=== PATIENT | female | born 1980 | race Caucasian/White ===

== ENCOUNTER 2018-01-02 07:46 | Emergency (ER) | payer MEDICAID, OTHER ==
[~2018-01-02] VITALS: Ht 160 cm; Wt 65.3 kg
[~2018-01-02 07:46] MED LIST: AMOX-999 PO; CHLO118S2 TP; LEVEMIR SUBQ; SACC250C1 PO; SLIDE SUBQ
[2018-01-02 07:58] VITALS: BP 160/86
--- NOTE | 2018-01-02 08:05 | NUR ---
PT AMBULATED TO BED 2
--- NOTE | 2018-01-02 08:13 | NUR ---
37 YO F BIB family w/ c/o pain 06/10 after a fall that occured 1 hour ago. Pt reports that she did not hit her head. Denies n/v at this time. Right leg/knee is swollen +2, non-pitting. Pt reports the pain begins at her right knee and radiates up her thigh and down to her foot. Sharp, like "electricity" shooting up her leg. A &O x 4. GCS 15. CMS intact. Pt denies numbness/tingling at this time. Pt unable to ambulate at this time due to injury, no weight-bearing. ER MD Salas notified of pt condition. Pt needs met at this time. Will continue to monitor.
[2018-01-02] MEDS ORDERED: KETOROLAC 60 MG/2 ML VIAL IM ONE (08:25)
[2018-01-02] MEDS ORDERED: HYDROcodone/APAP 5/325 MG 1 TAB TAB PO ONE (08:25)
--- NOTE | 2018-01-02 08:34 | NUR ---
Pt taken to XRAY via wheel chair accompanied by 2 XRAY techs.
--- NOTE | 2018-01-02 09:00 | NUR ---
Pt back from XRAY via w/c accompanied by manufacturing technician.
[2018-01-02 10:34] VITALS: BP 142/71
--- NOTE | 2018-01-02 10:34 | NUR ---
Patient discharged with v/s stable. Written and verbal after care instructions given and explained. Patient alert, oriented and verbalized understanding of instructions. All questions addressed prior to discharge. ID band removed. Patient advised to follow up with PMD. Rx of KETOROLAC, TRAMADOL given. Patient educated on indication of medication including possible reaction and side effects. Opportunity to ask questions provided and answered. PT LEFT VIA CRUTCHES, SENT OUT VIA W/C, PT STILL C/O LIGHTHEADNESS SECONDARY TO PAIN MED. CRUTCHES TEACHING DONE.
== END 2018-01-02 10:34 | disposition home or self-care (01) ==
LOC: MED 07:46
DX: S83.421A Sprain of lateral collateral ligament of right knee, initial encounter (principal); E05.90 Thyrotoxicosis, unspecified without thyrotoxic crisis or storm; E11.9 Type 2 diabetes mellitus without complications; W01.0XXA Fall on same level from slipping, tripping and stumbling without subsequent striking against object, initial encounter; Y93.89 Activity, other specified; Y92.89 Other specified places as the place of occurrence of the external cause; Y99.8 Other external cause status
CPT/HCPCS: 29505; 73562; 82948; 96372; 99285; J1885

== ENCOUNTER 2018-01-08 00:23 | Emergency (ER) | payer OTHER ==
[~2018-01-08] VITALS: Ht 160 cm; Wt 68.0 kg
[2018-01-08 00:42] VITALS: BP 154/87
--- NOTE | 2018-01-08 01:55 | NUR ---
PT TO CT
--- NOTE | 2018-01-08 01:55 | NUR ---
Pt presents to ED with Right knee pain x1 week. Pt states no numbness or tingling. VSS. ER MD aware. Continue to monitor.
[2018-01-08] MEDS ORDERED: HYDROcodone/APAP 5/325 MG 1 TAB TAB PO ONE (02:50)
[2018-01-08 04:18] VITALS: BP 154/87
--- NOTE | 2018-01-08 04:18 | NUR ---
Patient discharged with v/s stable. Written and verbal after care instructions given and explained. Patient alert, oriented and verbalized understanding of instructions. Ambulatory with steady gait. All questions addressed prior to discharge. ID band removed. Patient advised to follow up with PMD. Rx of norco and ibuprofen given. Patient educated on indication of medication including possible reaction and side effects. Opportunity to ask questions provided and answered.
== END 2018-01-08 04:18 | disposition home or self-care (01) ==
LOC: MED 04:05
DX: S82.141A Displaced bicondylar fracture of right tibia, initial encounter for closed fracture (principal); E11.9 Type 2 diabetes mellitus without complications; E05.90 Thyrotoxicosis, unspecified without thyrotoxic crisis or storm; X58.XXXA Exposure to other specified factors, initial encounter; Y93.89 Activity, other specified; Y92.89 Other specified places as the place of occurrence of the external cause; Y99.8 Other external cause status
CPT/HCPCS: 29505; 73700; 81025; 99284

== ENCOUNTER 2018-12-03 15:04 | Emergency (ER) | payer OTHER ==
[~2018-12-03] VITALS: Ht 162.6 cm; Wt 73.0 kg
[2018-12-03 15:48] VITALS: BP 153/115
--- NOTE | 2018-12-03 17:10 | NUR ---
PT TO ER BED 7
--- NOTE | 2018-12-03 17:26 | NUR ---
THIS 38 YEAR FEMALE PT IS REFERRED BY HER PCP FOR BLE US TO RULE OUT DVT. PATIENT . PT STATES SHE HAS BEENNGETTING BLE EDEMA SINCE A WEEK W/O RELIEF. NOT TAKING ANY MEDICINES FOR EDEMA. PITTING EDEMA 1+ BLE. HAS EQUAL SENSATION ON BLE. MOVES ALL FINGERS AND EXTREMITIES FREELY. NOTED REDNESS ON BL FEET. DENIES N/V/D; SKIN IS PINK/WARM/DRY. AAOX4 WITH EVEN AND STEADY GAIT. PT DENIES ANY FEVER, CP, SOB, OR COUGH AT THIS TIME. PATIENT STATES SHE HAS BL LOWER EXTREMITIES PAIN BUT DOES NOT WANT PAIN MEDICINE AT THIS TIME. ELEVATED BP NOTED. AWARE. PATIENT POSITIONED FOR COMFORT; HOB ELEVATED; BEDRAILS UP X2; BED DOWN. ER MD MADE AWARE OF PT STATUS.
[2018-12-03 18:40] VITALS: BP 198/97
--- NOTE | 2018-12-03 18:40 | NUR ---
Patient discharged with v/s stable. Written and verbal after care instructions given and explained. Patient verbalized understanding. Ambulatory with steady gait. All questions addressed prior to discharge. Advised to follow up with PMD.
== END 2018-12-03 18:49 | disposition home or self-care (01) ==
LOC: MED 15:04
DX: R60.0 Localized edema (principal); M79.645 Pain in left finger(s); E11.319 Type 2 diabetes mellitus with unspecified diabetic retinopathy without macular edema; I10 Essential (primary) hypertension; Z79.2 Long term (current) use of antibiotics; Z79.4 Long term (current) use of insulin
CPT/HCPCS: 73140; 93970; 99284; Q0092

== ENCOUNTER 2019-07-20 17:18 | Emergency (ER) | payer OTHER ==
[~2019-07-20] VITALS: Ht 160 cm; Wt 72.6 kg
[2019-07-20 17:23] VITALS: BP 121/69
--- NOTE | 2019-07-20 17:32 | NUR ---
WAIT AT [facility],AAOX4
--- NOTE | 2019-07-20 17:44 | NUR ---
C/O NAUSEA & LEFT LOWER BACK PAIN X 3 DAYS. PAIN CONSTANT 9/10. DENIES VOMITING, FEVER, BM CHANGES. LBM TODAY NORMAL CONSISTENCY. DENIES UTI SYMPTOMS. LEFT LUMBAR REGION TENDER TO PALPATION. NO TENDERNESS TO SPINE. MED HX:DM
[2019-07-20] MEDS ORDERED: KETOROLAC 30 MG/ML VIAL IM ONE (18:25)
--- NOTE | 2019-07-20 18:55 | NUR ---
Patient discharged with v/s stable. Written and verbal after care instructions given and explained. Patient alert, oriented and verbalized understanding of instructions. Ambulatory with steady gait. All questions addressed prior to discharge. ID band removed. Patient advised to follow up with PMD. Rx of MOTRIN AND ACETAMINOPHEN given. Patient educated on indication of medication including possible reaction and side effects. Opportunity to ask questions provided and answered.
[2019-07-20 19:00] VITALS: BP 128/81
== END 2019-07-20 18:55 | disposition home or self-care (01) ==
LOC: MED 17:18
DX: M54.5 Low back pain (principal); R31.9 Hematuria, unspecified; E11.319 Type 2 diabetes mellitus with unspecified diabetic retinopathy without macular edema; I10 Essential (primary) hypertension; E05.90 Thyrotoxicosis, unspecified without thyrotoxic crisis or storm; Z90.49 Acquired absence of other specified parts of digestive tract; Z98.890 Other specified postprocedural states; Z79.4 Long term (current) use of insulin; Z79.899 Other long term (current) drug therapy
CPT/HCPCS: 81002; 81025; 96372; 99283; J1885; 82948

== ENCOUNTER 2019-07-21 17:54 | Emergency (ER) | payer OTHER ==
[~2019-07-21] VITALS: Ht 160 cm; Wt 72.6 kg
[2019-07-21 18:49] VITALS: BP 173/89
--- NOTE | 2019-07-21 19:08 | NUR ---
PT AMBULATES TO LOBBY. DR. TINSLEY MADE AWARE OF PT'S BP.
--- NOTE | 2019-07-21 20:09 | NUR ---
PT AMBULATED TO ER BED 1
--- NOTE | 2019-07-21 20:18 | NUR ---
38 Y/O F PRESENTS TO ED WITH C/O LT FLANK PAIN X 4 DAYS, WORSENING TODAY. AAOX4. 07/10 SHARP AND CONTINOUS PAIN. PAIN RADIATES TO LLQ ABDOMEN. LT FLANK PAIN TENDERNESS. PT DENIES DYSURIA AND HEMATURIA. +NAUSEA. FAMILY AT BEDSIDE. WILL CONTINUE TO MONTIOR.
--- NOTE | 2019-07-21 20:45 | NUR ---
PT BP 202/90, HR 86. ERMD MADE AWARE OF PT STATUS.
[2019-07-21] MEDS ORDERED: NACL 0.9% 1,000 ML IV ONE (20:48)
[2019-07-21] MEDS ORDERED: ONDANSETRON 4 MG/2 ML VIAL IVP ONE (20:50)
[2019-07-21] MEDS ORDERED: MORPHINE SULFATE 4 MG/ML SYR IVP ONE (20:50)
--- NOTE | 2019-07-21 21:04 | NUR ---
DR. TINSLEY BEDSIDE EVALUATING PT
[2019-07-21 21:17] LABS: BASOPHILS % (AUTO) 0.5 % (0.0-2.0); EOSINOPHILS # (AUTO) 0.2 K/uL (0-0.4); EOSINOPHILS % (AUTO) 2.6 % (0.0-4.0); HEMATOCRIT 35.1 % (36-48); HEMOGLOBIN 11.6 g/dL (12.0-16.0); LYMPHOCYTES # (AUTO) 1.8 K/uL (2.5-16.5); LYMPHOCYTES % (AUTO) 28.9 % (20.5-51.1); MEAN CORPUSCULAR HEMOGLOBIN 29 pg (27-31); MEAN CORPUSCULAR HGB CONC 33 g/dL (33-37); MEAN CORPUSCULAR VOLUME 88.7 fL (80-94); MONOCYTES # (AUTO) 0.3 K/uL (0.8-1.0); MONOCYTES % (AUTO) 4.8 % (1.7-9.3); NEUTROPHILS % (AUTO) 63.2 % (42.2-75.2); PLATELET COUNT (AUTO) 264 K/uL (140-450); RED BLOOD CELL COUNT(AUTO) 3.96 MIL/uL (4.20-5.40); RED CELL DISTRIBUTION WIDTH 13.2 % (11.6-13.7); WHITE BLOOD COUNT (AUTO) 6.3 K/uL (4.8-10.8)
--- NOTE | 2019-07-21 21:23 | NUR ---
PT TAKEN TO CT VIA W/C
[2019-07-21 21:29] LABS: CARBON DIOXIDE 23.4 mmol/L (21-32)
[2019-07-21 21:33] LABS: POTASSIUM 5.4 mmol/L (3.5-5.1)
--- NOTE | 2019-07-21 21:41 | NUR ---
PT RETURNED FROM CT VIA W/C
[2019-07-21 21:42] LABS: ALBUMIN 2.7 g/dL (3.4-5.0); TOTAL BILIRUBIN 0.3 mg/dL (0.0-1.0)
[2019-07-21 22:17] LABS: APPEARANCE,URINE SL CLOUDY (CLEAR); BILIRUBIN,URINE NEGATIVE (NEGATIVE); BLOOD, URINE 2+ (NEGATIVE); COLOR,URINE YELLOW (YELLOW); LEUKOCYTE ESTERASE ,URINE NEGATIVE (NEGATIVE); NITRITE, URINE NEGATIVE (NEGATIVE); UGLUCOSE 2+ (NEGATIVE)
[2019-07-21] MEDS ORDERED: SODIUM ZIRCONIUM CYCLOSILICATE 10 GM POWD.PACK PO ONE (22:20)
--- NOTE | 2019-07-21 22:23 | NUR ---
PT DECREASED TO 180/94, HR 90. PT ASYMPTOMATIC. PT STATES DECREASED PAIN 6/10. PER PT "I RAN OUT OF MY BLOOD PRESSURE MEDICATION. I TOOK THE LAST PILL LAST NIGHT."
[2019-07-21 22:53] LABS: WBC,URINE 0-5 /HPF (0-5)
[2019-07-21] MEDS ORDERED: SODIUM POLYSTYRENE 15 GM/60 ML UDBTL PO ONE (23:10)
[2019-07-22] MEDS ORDERED: KETOROLAC 30 MG/ML VIAL IVP ONE (00:10)
--- NOTE | 2019-07-22 00:15 | NUR ---
PT SEEN WITH EYES CLOSED. VISIBLE CHEST RISE AND FALL NOTED. VSS AT THIS TIME. WILL CONTINUE TO MONITOR
[2019-07-22] MEDS ORDERED: cefTRIAXone 1,000 MG VIAL ONE (00:31)
[2019-07-22] MEDS ORDERED: MORPHINE SULFATE 4 MG/ML SYR IVP ONE (00:50)
[2019-07-22 01:46] VITALS: BP 178/91
--- NOTE | 2019-07-22 01:47 | NUR ---
Patient discharged with v/s stable. Written and verbal after care instructions given and explained. Patient alert, oriented and verbalized understanding of instructions. Ambulatory with to home. All questions addressed prior to discharge. ID band removed. Patient advised to follow up with PMD. Rx of NAPROSYN 500 MG, NORCO, KEFLEX given. Patient educated on indication of medication including possible reaction and side effects. Opportunity to ask questions provided and answered.
--- NOTE | 2019-07-22 08:03 | NUR ---
Late entry. COnfirmed with RN that 0.9 NS IV 100ml/hr completed at 2200
--- NOTE | 2019-07-22 08:04 | NUR ---
Late entry. COnfirmed with RN that Rocephin IVPB completed at 0110
== END 2019-07-22 01:47 | disposition home or self-care (01) ==
LOC: MED 17:54
DX: N39.0 Urinary tract infection, site not specified (principal); E11.9 Type 2 diabetes mellitus without complications; I10 Essential (primary) hypertension; E07.9 Disorder of thyroid, unspecified; E05.90 Thyrotoxicosis, unspecified without thyrotoxic crisis or storm; Z79.899 Other long term (current) drug therapy; Z79.4 Long term (current) use of insulin
CPT/HCPCS: 36415; 74176; 80053; 81001; 81025; 83690; 85025; 87086; 96361; 96365; 96375; 96376; 99284; J0696; J1885; J2270; J2405; J7030; J7060; 82948

== ENCOUNTER 2019-07-23 22:08 | Emergency (ER) | payer OTHER ==
[~2019-07-23] VITALS: Ht 160 cm; Wt 79.8 kg
[2019-07-23 22:25] VITALS: BP 197/85
--- NOTE | 2019-07-23 22:31 | NUR ---
PT TAKEN TO BED 5
--- NOTE | 2019-07-23 22:34 | NUR ---
Dr. Encarnacion examining patient.
--- NOTE | 2019-07-23 22:50 | NUR ---
38 Y/O FEMALE PRESENTS TO ED FOR POTASSIUM RECHECK. PT STATES COMING TO ED YESTERDAY AND WAS ENCOURAGED TO RETURN FOR POTASSIUM RECHECK DUE TO HYPERKALEMIA. PT DENIES ANY CHEST PAIN/SOB. PT VSS. PT SEEN BY ROSS. WILL CONTINUE TO MONITOR.
[2019-07-23 23:18] LABS: ANION GAP 11.4 (8-16); CARBON DIOXIDE 28.7 mmol/L (21-32); CREATININE 0.9 mg/dL (0.6-1.3); POTASSIUM 4.1 mmol/L (3.5-5.1)
--- NOTE | 2019-07-23 23:56 | NUR ---
DR TINSLEY MADE AWARE OF BP 173/80, HR 103. PT DENIES CP, SOB, PALPITATIONS, DIZZINESS OR HEADACHE. PER ER MD, PT OK FOR DISCHARGE.
[2019-07-23 23:57] VITALS: BP 173/80
== END 2019-07-23 23:57 | disposition home or self-care (01) ==
LOC: MED 22:08
DX: R79.89 Other specified abnormal findings of blood chemistry (principal); E11.9 Type 2 diabetes mellitus without complications; I10 Essential (primary) hypertension; E05.90 Thyrotoxicosis, unspecified without thyrotoxic crisis or storm; Z79.899 Other long term (current) drug therapy; Z79.2 Long term (current) use of antibiotics; Z79.4 Long term (current) use of insulin
CPT/HCPCS: 36415; 80048; 99283